=== PATIENT | male | born 1965 | race Caucasian/White ===

== ENCOUNTER 2023-07-02 08:09 | Emergency (ER) | payer MEDICAID, SELFPAY ==
[2023-07-02 08:11] VITALS: BP 157/92; PULSE 83; RESP 16; TEMP 35.8; O2SAT 99; BMI 30.4
--- NOTE | 2023-07-02 08:33 | EKG12_ITS ---
Test Reason : SEIZURE Blood Pressure : / mmHG Vent. Rate : 071 BPM Atrial Rate : 071 BPM P-R Int : 128 ms QRS Dur : 086 ms QT Int : 400 ms P-R-T Axes : 044 -08 037 degrees QTc Int : 434 ms Normal sinus rhythm Normal ECG Confirmed by Dennis Melvin ([id number]), commissioning editor KADEN ABDULLAHI ([id number]) on 07/06/2023 10:09:58 AM Referred By: Confirmed By:Dennis Melvin
--- NOTE | 2023-07-02 08:34 | EX.ED.DYSGE1 ---
HPI History of Present Illness Chief Complaint: Seizure Detail of Chief Complaint: Shortness of breath and concern for possible seizure Informant: patient Narrative Narrative: Patient presents to the emergency department from residential with some shortness of breath that started last evening. Patient also has been shaking and thinks maybe he was having seizure type activity. He does have history of seizures and takes Depakote but did not get his 4:00 medications yesterday. Patient still at times feels shaky in the upper extremities. He is awake when this is happening. He used his nebulizer treatments last night. Feels better this morning but still little shaky and some mild shortness of breath. He denies any chest pain. He does have history of Seese emphysema and COPD. History of PE and currently on Eliquis. [facility] Medical History (Updated 07/02/23 @ 10:[address] Laquita Varner, ) DVT (deep venous thrombosis) Anxiety Seizures Emphysema/COPD Schizophrenia Home Medications ?Medication ?Instructions ?Recorded ?Last Taken ?Type apixaban 5 mg tablet (Eliquis) 5 mg PO BID 07/02/23 Unknown History celecoxib 200 mg capsule (Celebrex) 200 mg PO BID 07/02/23 Unknown History cetirizine 10 mg tablet (Allergy 10 mg PO DAILY 07/02/23 Unknown History Relief (cetirizine)) divalproex 500 mg tablet,extended 1,500 mg PO DAILY 07/02/23 Unknown History release 24 hr folic acid 1 mg tablet 1 mg PO DAILY 07/02/23 Unknown History furosemide 40 mg tablet 40 mg PO DAILY 07/02/23 Unknown History lisinopril 5 mg tablet 5 mg PO DAILY 07/02/23 Unknown History lumateperone 42 mg capsule 42 mg PO DAILY 07/02/23 Unknown History (Caplyta) omeprazole 40 mg capsule,delayed 40 mg PO DAILY 07/02/23 Unknown History release potassium chloride 20 mEq 20 meq PO DAILY 07/02/23 Unknown History tablet,extended release pravastatin 40 mg tablet 40 mg PO QHS 07/02/23 Unknown History prednisone 20 mg tablet 20 mg PO DAILY 07/02/23 Unknown History prednisone 20 mg tablet 20 mg PO DAILY #3 tabs 07/02/23 Unknown Rx spironolactone 25 mg tablet 25 mg PO DAILY 07/02/23 Unknown History tizanidine 4 mg capsule 4 mg PO BID 07/02/23 Unknown History Allergy/AdvReac Type Severity Reaction Status Date / Time codeine AdvReac Severe Angioedema Verified 07/02/23 08:11 Social History Smoking Status: Current every day smoker tobacco type: cigarettes ROS ROS ED Review of Systems ROS Unobtainable: other Constitutional Constitutional ED: Reports lethargy; Denies chills, fever(s), sweats or weight loss Eyes Eyes: Denies blurry vision, change in vision or diplopia ENT ENT ED: Denies rhinorrhea or sore throat Cardiovascular Cardiovascular: Denies chest pain, orthopnea or racing heartbeat Respiratory/Chest Respiratory/Chest: Reports dyspnea and dyspnea on exertion; Denies cough, orthopnea or sputum Gastrointestinal Gastrointestinal: Denies abdominal pain, diarrhea, nausea or vomiting Genitourinary Genitourinary ED: Denies dysuria, hematuria or urinary frequency Musculoskeletal Musculoskeletal: Denies arthralgias, back pain, myalgias or neck pain Integumentary Denies abscess, Abrasions or rash Neurologic Neurologic: Reports other Details: Shaking of hands ; Denies headache(s) or weakness Psychiatric Psychiatric: Denies anxiety, depression or suicidal thoughts Endocrine Endocrinology: Denies polydipsia, polyphagia or polyuria Hematologic/Lymphatic Hematologic/Lymphatic: Denies easy bleeding, easy bruising or lymphadenopathy Allergic/Immunologic Allergic/Immunologic ED: Denies mouth swelling, tongue swelling or urticaria EXAM Physical Exam Const Vital Signs: 07/02/23 08:11 07/02/23 08:56 07/02/23 10:10 Temperature 96.4 F L Temperature Source Temporal Pulse Rate 83 72 Respiratory Rate 16 12 Blood Pressure 157/92 H 112/70 Blood Pressure Mean 113 84 Pulse Ox 99 95 Oxygen Delivery Method Room Air Room Air Room Air Positive well nourished and well developed General Appearance ED: well developed and NAD HEENT Reports TM's clear and moist mucous membranes normocephalic and atraumatic; Negative for trauma or tenderness Tympanic Membrane ED: Yes TM's clear Eyes PERRL and EOMs intact bilaterally General Eye ED: Negative for pale conjunctiva or scleral icterus Neck no lymphadenopathy, supple and no JVD General: Negative for tenderness Chest Wall inspection of chest normal and palpation of chest normal Chest: Negative for tenderness Resp normal respiratory effort and clear to auscultation bilaterally Resp Narrative: Few faint expiratory wheezes bilaterally. No significant tachypnea or accessory muscle use or retractions. Effort and Inspection: Negative for respiratory distress or pain with movement Auscultation: Negative for rhonchi, wheezes or diminished lung sounds Cardio regular rate, regular rhythm, S1 normal heart sound, S2 normal heart sound and no murmurs Peripheral Pulses: pulses 2+ throughout GI normal to inspection, nondistended, normoactive bowel sounds, soft to palpation, non-tender, non-distended and no masses Back/Spine no CVA tenderness and no thoracic nor lumbar tenderness Extremity normal to inspection General Extremety ED: Negative for edema General Extremity: Negative for edema Neuro oriented x3, CN's II-XII intact bilaterally, no sensory deficits noted and gait normal Neuro Narrative: Some shaking of his hands almost tremor-like bilaterally that dissipates at times and resolves. I do not feel he is having seizure-like activity. Sensorium / Orientation: awake, alert, oriented to person, oriented to place and oriented to time Motor Exam: strength 5/5 throughout and strength abnormal Psych mental status grossly normal Skin no rashes or lesions noted and no wounds MDM MDM MDM Narrative Medical decision making narrative: Patient presents from residential with caregiver with complaint of shaking in his hands and some shortness of breath that started last night. Patient does have history of anxiety. He thought maybe was seizure related although he has been taking his seizure medicines regularly other than he missed 1 dose yesterday. Clinically he looks well. IV line established. EKG obtained on arrival shows sinus rhythm with rate 71 bpm with no acute ST segment changes. CBC with differential count of 9.0 with hemoglobin 11.4 and platelet count 356. Chemistries unremarkable. Valproic acid was 57. Troponin normal at 5. Chest x-ray unremarkable. COVID flu and RSV testing was negative. He was given a DuoNeb aerosol. [place] improved. Clinically he looks well. He is not currently having any shaking activity. I do not think he is having seizure type activity. Suspect this is more likely anxiety related and he believes that it is also. I feel he can be safely discharged to home. I will write him for prednisone for 3 days although he is on 20 mg daily chronically I will give him extra 20 mg for the next 3 days. I do not feel he needs any antibiotics. Lab Data Attestation: I reviewed the patient's lab results. Labs: Laboratory Results - last 24 hr 07/02/23 08:50 WBC 9.0 RBC 3.34 L Hgb 11.4 L Hct 34.2 L MCV 102.4 H MCH 34.1 H MCHC 33.3 RDW Std Deviation 49.9 H RDW Coeff of [place] 13.2 Plt Count 356 MPV 8.8 Immature Gran % (Auto) 1.100 H Neut % (Auto) 53.4 Lymph % (Auto) 34.7 [place] % (Auto) 9.4 Eos % (Auto) 0.8 Baso % (Auto) 0.6 Absolute Neuts (auto) 4.8 Absolute Lymphs (auto) 3.11 Nucleated RBC % 0 Sodium 137 Potassium 3.3 L Chloride 102 Carbon Dioxide 29.0 Anion Gap 6 BUN 7 Creatinine 0.94 Estim Creat Clear Calc 98.46 Est GFR (MDRD) Af Amer 105 Est GFR (MDRD) Non-Af 87 BUN/Creatinine Ratio 7.4 L Glucose 101 Calcium 8.5 Troponin I High Sens 5 Valproic Acid 57 Radiography Diagnostic Testing: Clinical Impression(s) from Imaging Studies Chest X-Ray 07/02/23 09:18 IMPRESSION: No radiographic evidence of acute cardiopulmonary disease. Electronically Signed: Jamaal Vitale MD at 9:28 EDT , 1 view chest x-ray obtained interpreted by myself no evidence of infiltrate or pneumothorax or acute disease process. Radiology in agreement. EKG Initial EKG: Attestation: I personally reviewed and interpreted this EKG as follows: Comments: Sinus rhythm with rate of 71 bpm with no acute ST segment changes Discharge Plan Triage Chief Complaint: Seizure ED Provider: Lqauita Varner Dx/Rx/DC Orders Clinical Impression: COPD exacerbation, Anxiety Instructions: ED Anxiety Reaction, ED COPD Flare Prescriptions: New prednisone 20 mg tablet 20 mg PO DAILY Qty: 3 0RF No Action Caplyta 42 mg capsule 42 mg PO DAILY celecoxib [Celebrex] 200 mg capsule 200 mg PO BID cetirizine [Allergy Relief (cetirizine)] 10 mg tablet 10 mg PO DAILY divalproex 500 mg tablet extended release 24 hr 1,500 mg PO DAILY Eliquis 5 mg tablet 5 mg PO BID folic acid 1 mg tablet 1 mg PO DAILY furosemide 40 mg tablet 40 mg PO DAILY lisinopril 5 mg tablet 5 mg PO DAILY omeprazole 40 mg capsule,delayed release(DR/EC) 40 mg PO DAILY potassium chloride 20 mEq tablet extended release 20 meq PO DAILY pravastatin 40 mg tablet 40 mg PO QHS prednisone 20 mg tablet 20 mg PO DAILY Rx Instructions: days 11-21 of therapy spironolactone 25 mg tablet 25 mg PO DAILY tizanidine 4 mg capsule 4 mg PO BID Primary Care Provider: Ted Tran Referrals: [facility] Doctor,Out of [Non-Staff] - 3-5 Days Print Language: Turkish Disposition Disposition: Home, Self Care
--- NOTE | 2023-07-02 08:39 | NURSING ---
NO OLD EKGS
[2023-07-02 08:58] LABS: Absolute Lymphocyte Count 3.11 X10^3/uL (0.83-4.51); Absolute Neutrophil Count 4.8 X10^3/uL (2.0-7.7); Basophil# 0.05 X10^3/uL; Basophil% 0.6 % (0-1); Eosinophil# 0.07 X10^3/uL; Eosinophils% 0.8 % (0-5); Hematocrit 34.2 % (40-54); Hemoglobin 11.4 g/dL (13.0-16.5); Lymphocyte # 3.11 X10^3/ul (0.83-4.51); Lymphocyte % 34.7 % (19-41); Mean Corp Hgb Conc 33.3 g/dL (32-36); Mean Corpuscular Hgb 34.1 pg (27.0-32.0); Mean Corpuscular Volume 102.4 fL (80-94); Mean Platelet Vol. 8.8 fl (6.2-12.0); Monocyte# 0.84 X10^3/uL; Monocyte% 9.4 % (0-10); NRBC Flagged by Analyzer 0 % (0-5); Neutrophil # 4.78 X10^3/uL (2.7-7.7); Neutrophil % 53.4 % (47-70); Platelet Count 356 K/mm3 (150-450); RBC Distribution Width CV 13.2 % (11.6-14.6); RBC Distribution Width SD 49.9 fl (35.1-43.9); Red Blood Count 3.34 M/mm3 (4.6-6.2)
[2023-07-02] MEDS: 0.9% Normal Saline (1000mL) 1,000 ML 150 ML IV (09:01)
--- NOTE | 2023-07-02 09:18 | RAD_ITS ---
INDICATION: dyspnea EXAMINATION/TECHNIQUE: X-RAY - XR Chest 1 View COMPARISON: No relevant prior comparison study available FINDINGS: LINES/DEVICES: None. LUNGS: No consolidation, edema or effusion. No pneumothorax. MEDIASTINUM AND CARDIOVASCULAR STRUCTURES: Cardiac silhouette not enlarged. Central airways and mediastinal contour are unremarkable. BONES AND SOFT TISSUES: Unremarkable. RAD/Chest 1 View (Portable) IMPRESSION: No radiographic evidence of acute cardiopulmonary disease. Electronically Signed: Jamaal Vitale MD at 9:28 EDT ,
[2023-07-02 09:21] LABS: Anion Gap 6 (5-15); BUN 7 mg/dL (7-18); BUN/Creat Ratio 7.4 RATIO (10-20); Calcium,Total 8.5 mg/dL (8.5-10.1); Chloride 102 mmol/L (98-107); Creatinine, Serum 0.94 mg/dL (0.70-1.30); EST Glomerular Filtration Rate 87 mL/min (>60); Est Glom Filt Rate - Afr Amer 105 mL/min (>60); Estimated Creatinine Clearance 98.46 ml/min; Glucose 101 mg/dL (74-106); Potassium 3.3 mmol/L (3.5-5.1); Sodium Level 137 mmol/L (136-145); Troponin-I HS 5 pg/mL (3.0-78.0)
[2023-07-02 09:36] LABS: Valproic Acid (Depakene) Level 57 ug/mL (50-100)
[2023-07-02 10:10] VITALS: BP 112/70; PULSE 72; RESP 12; O2SAT 95
[2023-07-02] MEDS: LORazepam 2 MG/ML Syringe 1 MG IV (10:37)
[2023-07-02 10:41] VITALS: BP 131/82; PULSE 79; RESP 15; TEMP 36.5; O2SAT 95
== END 2023-07-02 10:41 | disposition home or self-care (01) ==
PROVIDERS: Emergency Provider Emergency Medicine; Visit Provider Emergency Medicine
DX: F41.9 Anxiety disorder, unspecified (principal); J44.1 Chronic obstructive pulmonary disease with (acute) exacerbation; R56.9 Unspecified convulsions; F17.210 Nicotine dependence, cigarettes, uncomplicated; R06.02 Shortness of breath; Z79.899 Other long term (current) drug therapy; Z86.711 Personal history of pulmonary embolism; Z79.01 Long term (current) use of anticoagulants; Z86.718 Personal history of other venous thrombosis and embolism
CPT/HCPCS: 71045; 80048; 80164; 84484; 85025; 87631; 93005; 96361; 96374; 99284; J7030; A4216

== ENCOUNTER 2023-07-06 19:39 | Emergency (ER) | payer MEDICAID, SELFPAY ==
[2023-07-06 19:40] VITALS: BP 133/79; PULSE 87; RESP 18; TEMP 36; O2SAT 98
--- NOTE | 2023-07-06 20:49 | EX.ED.DYSGE1 ---
HPI <SAHARA Morales - Last Filed: 07/06/23 20:54> History of Present Illness Chief Complaint: Lower Extremity Injury Narrative Narrative: Patient presenting today with concerns for pain, swelling, and erythema to his right lower extremity that started a few days ago. He does remember accidentally scratching his leg a few days before the symptoms started. He reports a history of DVT in the past and is on Eliquis. He is compliant with this. He denies any chest pain, shortness of breath, fevers, or chills. PFSH <SAHARA Morales - Last Filed: 07/06/23 20:54> [facility] Medical History DVT (deep venous thrombosis) Anxiety Seizures Emphysema/COPD Schizophrenia Home Medications ?Medication ?Instructions ?Recorded ?Last Taken ?Type apixaban 5 mg tablet (Eliquis) 5 mg PO BID 07/02/23 Unknown History celecoxib 200 mg capsule (Celebrex) 200 mg PO BID 07/02/23 Unknown History cetirizine 10 mg tablet (Allergy 10 mg PO DAILY 07/02/23 Unknown History Relief (cetirizine)) divalproex 500 mg tablet,extended 1,500 mg PO DAILY 07/02/23 Unknown History release 24 hr fluoxetine 40 mg capsule (Prozac) 40 mg PO DAILY 07/02/23 Unknown History folic acid 1 mg tablet 1 mg PO DAILY 07/02/23 Unknown History furosemide 40 mg tablet 40 mg PO DAILY 07/02/23 Unknown History hydroxyzine pamoate 50 mg capsule 50 mg PO BID 07/02/23 Unknown History lisinopril 5 mg tablet 5 mg PO DAILY 07/02/23 Unknown History lumateperone 42 mg capsule 42 mg PO DAILY 07/02/23 Unknown History (Caplyta) omeprazole 40 mg capsule,delayed 40 mg PO DAILY 07/02/23 Unknown History release potassium chloride 20 mEq 20 meq PO DAILY 07/02/23 Unknown History tablet,extended release pravastatin 40 mg tablet 40 mg PO QHS 07/02/23 Unknown History prednisone 20 mg tablet 20 mg PO DAILY 07/02/23 Unknown History prednisone 20 mg tablet 20 mg PO DAILY #3 tabs 07/02/23 Unknown Rx spironolactone 25 mg tablet 25 mg PO DAILY 07/02/23 Unknown History tizanidine 4 mg capsule 4 mg PO BID 07/02/23 Unknown History cephalexin 500 mg capsule 500 mg PO Q6 7 days #28 CAPSULES 07/06/23 Unknown Rx Allergy/AdvReac Type Severity Reaction Status Date / Time codeine AdvReac Severe Angioedema Verified 07/06/23 19:39 Social History Smoking Status: Current every day smoker tobacco type: cigarettes ROS <SAHARA Morales - Last Filed: 07/06/23 20:54> ROS ED Constitutional Constitutional ED: Denies chills or fever(s) Cardiovascular Cardiovascular: Denies chest pain Respiratory/Chest Respiratory/Chest: Denies dyspnea Musculoskeletal Musculoskeletal: Reports arthralgias Integumentary Reports Abrasions Neurologic Neurologic: Denies paresthesias or weakness EXAM <SAHARA Morales - Last Filed: 07/06/23 20:54> Physical Exam Const Vital Signs: 07/06/23 19:40 Temperature 96.8 F L Temperature Source Temporal Pulse Rate 87 Respiratory Rate 18 Blood Pressure 133/79 H Blood Pressure Mean 97 Pulse Ox 98 Oxygen Delivery Method Room Air Positive well nourished, well developed and no apparent distress General Appearance ED: well developed HEENT Reports normocephalic and head/scalp atraumatic Mouth ED: Yes moist mucous membranes normal Eyes PERRL and EOMs intact bilaterally Neck full ROM and supple Chest Wall inspection of chest normal Resp normal respiratory effort and clear to auscultation bilaterally Cardio regular rate and regular rhythm GI soft to palpation, non-tender, non-distended and no masses Back/Spine normal ROM and normal to inspection Extremity full ROM Extremity Narrative: Bilateral DP pulse 2+, good capillary refill, sensation intact. Small wound to the right mid craven with surrounding erythema. No purulent discharge. There are chronic venous stasis changes to the right lower extremity as well. Neuro oriented x3, CN's II-XII intact bilaterally, moves all extremities, no focal motor deficits and no sensory deficits noted Sensorium / Orientation: awake and alert Psych mental status grossly normal and thought process normal <Dr. Gareth Santos DO - Last Filed: 07/06/23 21:03> Physical Exam Const Vital Signs: 07/06/23 19:40 Temperature 96.8 F L Temperature Source Temporal Pulse Rate 87 Respiratory Rate 18 Blood Pressure 133/79 H Blood Pressure Mean 97 Pulse Ox 98 Oxygen Delivery Method Room Air [facility] <SAHARA Morales - Last Filed: 07/06/23 20:54> [facility] Narrative Medical decision making narrative: Patient presenting with cellulitis to his right lower extremity. He has a small wound to the right mid craven from scratching himself with surrounding erythema. No purulent discharge from the wound. He does have chronic venous stasis changes as well. Negative Homans' sign on the right. He is neurovascularly intact distally. He denies any history of diabetes or immunocompromising conditions. I do not feel that any labs are indicated at this time. Given he is compliant with his Eliquis I have low suspicion for DVT. He is well-appearing and in no acute distress. Vitals are unremarkable. He will be placed on Keflex with first dose here. I encouraged close follow-up with his PCP. He will be discharged home in stable condition. <Dr. Gareth Santos DO - Last Filed: 07/06/23 21:03> [facility] Treatment and Re-Evaluation :: I have personally performed a face to face assessment of the patient and have reviewed the EDDIE Note. I performed a substantive portion of the visit including all aspects of the following. My glover findings include: History is 57-year-old male on Eliquis presenting with right lower leg swelling and redness. Patient states he scratched himself recently and has developed some redness around the area as well as swelling extending distally. He notes he chronically has some leg discoloration of that leg. He notes he has had prior stenting of the artery. He has not missed any doses of his Eliquis. He notes no calf pain. Exam is there is a healing superficial abrasion and skin avulsion of the mid right craven with surrounding erythema measuring approximately 4 cm. There is mild swelling. Calf nontender. No palpable cords. There is a bounding dorsalis pedis pulse. Medical Decison Making this appears to be a cellulitis. Will start him on Keflex. Follow-up as needed return if worsening or concerns Discharge Plan Triage Chief Complaint: Lower Extremity Injury ED Midlevel Provider: Cindy Castillo ED Provider: Gareth Santos Dx/Rx/DC Orders Clinical Impression: Cellulitis Instructions: ED Cellulitis Prescriptions: New cephalexin 500 mg capsule 500 mg PO Q6 7 Days Qty: 28 0RF No Action Caplyta 42 mg capsule 42 mg PO DAILY celecoxib [Celebrex] 200 mg capsule 200 mg PO BID cetirizine [Allergy Relief (cetirizine)] 10 mg tablet 10 mg PO DAILY divalproex 500 mg tablet extended release 24 hr 1,500 mg PO DAILY Eliquis 5 mg tablet 5 mg PO BID folic acid 1 mg tablet 1 mg PO DAILY furosemide 40 mg tablet 40 mg PO DAILY lisinopril 5 mg tablet 5 mg PO DAILY omeprazole 40 mg capsule,delayed release(DR/EC) 40 mg PO DAILY potassium chloride 20 mEq tablet extended release 20 meq PO DAILY pravastatin 40 mg tablet 40 mg PO QHS prednisone 20 mg tablet 20 mg PO DAILY Rx Instructions: days 11-21 of therapy spironolactone 25 mg tablet 25 mg PO DAILY tizanidine 4 mg capsule 4 mg PO BID prednisone 20 mg tablet 20 mg PO DAILY Qty: 3 0RF fluoxetine [Prozac] 40 mg capsule 40 mg PO DAILY hydroxyzine pamoate 50 mg capsule 50 mg PO BID Primary Care Provider: Ted Tran Referrals: Ted Tran [Other] Activity Restrictions/Additional Instructions: Follow-up with your PCP in the next 5 to 7 days and return for any worsening of your symptoms. Print Language: Ukrainian Disposition Disposition: Home, Self Care
[2023-07-06] MEDS: Cephalexin 250 MG Capsule 500 MG PO (21:23)
[2023-07-06 21:24] VITALS: BP 161/91; PULSE 75; RESP 19; TEMP 36.3; O2SAT 98
== END 2023-07-06 21:26 | disposition home or self-care (01) ==
PROVIDERS: Emergency Provider Emergency Medicine; Visit Provider Emergency Medicine
DX: L03.115 Cellulitis of right lower limb (principal); J43.9 Emphysema, unspecified; F17.210 Nicotine dependence, cigarettes, uncomplicated; Z86.718 Personal history of other venous thrombosis and embolism; Z79.01 Long term (current) use of anticoagulants; Z79.899 Other long term (current) drug therapy
CPT/HCPCS: 99282

== ENCOUNTER 2023-07-11 17:08 | Emergency (ER) | payer MEDICAID, SELFPAY ==
[2023-07-11 17:10] VITALS: BP 108/67; PULSE 94; RESP 18; TEMP 36.4; O2SAT 98; BMI 29.3
--- NOTE | 2023-07-11 17:43 | ED.VIS.DYS ---
HPI History of Present Illness Chief Complaint: Shortness of Breath Informant: patient Onset/Context/Timing Onset: Today Context: gradual Timing: Continuous Quality: Positive for Dyspnea on exertion Worsened by: Exertion Relieved by: Nothing Associated Symptoms cough; Negative for rhinorrhea, post nasal drip, ear pain, fever, sore throat, chills, sweats, clear sputum, white sputum, yellow sputum or green sputum Chest Pain: Positive for None Narrative Narrative: Patient presents with shortness of breath that became worse today. Patient states he is down to his last DuoNeb aerosol. Patient states that he does not know when his mail delivery prescription will be received at his house. Patient states his breathing is worse with any exertion. Patient admits to a mild cough but denies any sputum production. Patient denies any fevers or chills. Patient denies any chest pain. Patient states he normally takes 3 DuoNeb aerosols per day. [facility] Medical History DVT (deep venous thrombosis) Anxiety Seizures Emphysema/COPD Schizophrenia Home Medications ?Medication ?Instructions ?Recorded ?Last Taken ?Type apixaban 5 mg tablet (Eliquis) 5 mg PO BID 07/02/23 Unknown History celecoxib 200 mg capsule (Celebrex) 200 mg PO BID 07/02/23 Unknown History cetirizine 10 mg tablet (Allergy 10 mg PO DAILY 07/02/23 Unknown History Relief (cetirizine)) divalproex 500 mg tablet,extended 1,500 mg PO DAILY 07/02/23 Unknown History release 24 hr fluoxetine 40 mg capsule (Prozac) 40 mg PO DAILY 07/02/23 Unknown History folic acid 1 mg tablet 1 mg PO DAILY 07/02/23 Unknown History furosemide 40 mg tablet 40 mg PO DAILY 07/02/23 Unknown History hydroxyzine pamoate 50 mg capsule 50 mg PO BID 07/02/23 Unknown History lisinopril 5 mg tablet 5 mg PO DAILY 07/02/23 Unknown History lumateperone 42 mg capsule 42 mg PO DAILY 07/02/23 Unknown History (Caplyta) omeprazole 40 mg capsule,delayed 40 mg PO DAILY 07/02/23 Unknown History release potassium chloride 20 mEq 20 meq PO DAILY 07/02/23 Unknown History tablet,extended release pravastatin 40 mg tablet 40 mg PO QHS 07/02/23 Unknown History prednisone 20 mg tablet 20 mg PO DAILY 07/02/23 Unknown History prednisone 20 mg tablet 20 mg PO DAILY #3 tabs 07/02/23 Unknown Rx spironolactone 25 mg tablet 25 mg PO DAILY 07/02/23 Unknown History tizanidine 4 mg capsule 4 mg PO BID 07/02/23 Unknown History cephalexin 500 mg capsule 500 mg PO Q6 7 days #28 CAPSULES 07/06/23 Unknown Rx ipratropium 0.5 mg-albuterol 3 mg 3 ml inhalation TID #90 mL 07/11/23 Unknown Rx (2.5 mg base)/3 mL nebulization soln Allergy/AdvReac Type Severity Reaction Status Date / Time codeine AdvReac Severe Angioedema Verified 07/11/23 17:09 Surgical History no surgical history no surgical history Social History Smoking Status: Current every day smoker tobacco type: cigarettes ROS ROS ED Constitutional Constitutional ED: Denies chills or fever(s) Eyes Eyes: Denies blurry vision or change in vision ENT ENT ED: Denies rhinorrhea or sore throat Cardiovascular Cardiovascular: Denies chest pain or palpitations Respiratory/Chest Respiratory/Chest: Reports cough and dyspnea Gastrointestinal Gastrointestinal: Denies nausea or vomiting Genitourinary Genitourinary ED: Denies dysuria or hematuria Musculoskeletal Musculoskeletal: Denies back pain or neck pain Integumentary Denies abscess or rash Neurologic Neurologic: Denies headache(s) or weakness Allergic/Immunologic Allergic/Immunologic ED: Denies mouth swelling or urticaria EXAM Physical Exam Const Vital Signs: 07/11/23 17:10 07/11/23 17:19 Temperature 97.5 F L Temperature Source Temporal Pulse Rate 94 Respiratory Rate 18 Respiratory Effort Short of Breath Respiratory Depth Normal Respiratory Pattern Normal Blood Pressure 108/67 Blood Pressure Mean 80 Pulse Ox 98 Oxygen Delivery Method Room Air Room Air Positive well nourished and well developed General Appearance ED: well developed and NAD HEENT Reports moist mucous membranes Neck supple and no JVD Resp normal respiratory effort Auscultation: wheezes expiratory wheezes and throughout Cardio regular rate and regular rhythm GI non-tender and non-distended Palpation: soft Neuro oriented x3, CN's II-XII intact bilaterally and no sensory deficits noted [place] Coma Scale: document GCS findings Spontaneous Obeys Commands Oriented 15 Sensorium / Orientation: alert Speech: speech normal Motor Exam: strength 5/5 throughout Psych mental status grossly normal MDM MDM MDM Narrative Medical decision making narrative: Patient was given a DuoNeb aerosol here. Patient was given a prescription for refills for his DuoNeb aerosols. Patient was instructed to follow-up with his primary care physician in 5 to 7 days for reevaluation. Patient understood and was agreeable with the plan. All questions were answered. Discharge Plan Triage Chief Complaint: Shortness of Breath ED Provider: Kirill Baker Dx/Rx/DC Orders Clinical Impression: Dyspnea on exertion, COPD exacerbation Instructions: ED COPD Flare, ED Dyspnea Prescriptions: New ipratropium-albuterol 0.5 mg-3 mg(2.5 mg base)/3 mL solution for nebulization 3 ml inhalation TID Qty: 90 0RF No Action Caplyta 42 mg capsule 42 mg PO DAILY celecoxib [Celebrex] 200 mg capsule 200 mg PO BID cetirizine [Allergy Relief (cetirizine)] 10 mg tablet 10 mg PO DAILY divalproex 500 mg tablet extended release 24 hr 1,500 mg PO DAILY Eliquis 5 mg tablet 5 mg PO BID folic acid 1 mg tablet 1 mg PO DAILY furosemide 40 mg tablet 40 mg PO DAILY lisinopril 5 mg tablet 5 mg PO DAILY omeprazole 40 mg capsule,delayed release(DR/EC) 40 mg PO DAILY potassium chloride 20 mEq tablet extended release 20 meq PO DAILY pravastatin 40 mg tablet 40 mg PO QHS prednisone 20 mg tablet 20 mg PO DAILY Rx Instructions: days 11-21 of therapy spironolactone 25 mg tablet 25 mg PO DAILY tizanidine 4 mg capsule 4 mg PO BID prednisone 20 mg tablet 20 mg PO DAILY Qty: 3 0RF fluoxetine [Prozac] 40 mg capsule 40 mg PO DAILY hydroxyzine pamoate 50 mg capsule 50 mg PO BID cephalexin 500 mg capsule 500 mg PO Q6 7 Days Qty: 28 0RF Primary Care Provider: Ted Tran MD Referrals: Ted Tran MD [Other] - 5-7 Days NOT,DEFINED [Non-Staff] - Print Language: Swedish Disposition Disposition: Home, Self Care
[2023-07-11] MEDS: Ipratropium/Albuterol Sulfate 3 ML AMPUL.NEB INHALATION (17:58)
[2023-07-11 17:59] VITALS: PULSE 91; RESP 16
== END 2023-07-11 18:13 | disposition home or self-care (01) ==
PROVIDERS: Emergency Provider Emergency Medicine; Visit Provider Emergency Medicine
DX: J44.1 Chronic obstructive pulmonary disease with (acute) exacerbation (principal); J43.9 Emphysema, unspecified; F17.210 Nicotine dependence, cigarettes, uncomplicated
CPT/HCPCS: 94640; 99282

== ENCOUNTER 2023-08-27 22:09 | Emergency (ER) | payer MEDICAID, SELFPAY ==
[2023-08-27 22:10] VITALS: BP 168/72; PULSE 89; RESP 18; TEMP 36.6; O2SAT 98; BMI 32.3
[2023-08-27 22:41] LABS: Absolute Lymphocyte Count 2.58 X10^3/uL (0.83-4.51); Absolute Neutrophil Count 5.2 X10^3/uL (2.0-7.7); Basophil# 0.01 X10^3/uL; Basophil% 0.1 % (0-1); Eosinophil# 0.02 X10^3/uL; Eosinophils% 0.2 % (0-5); Hematocrit 34.3 % (40-54); Hemoglobin 11.2 g/dL (13.0-16.5); Lymphocyte # 2.58 X10^3/ul (0.83-4.51); Lymphocyte % 29.8 % (19-41); Mean Corp Hgb Conc 32.7 g/dL (32-36); Mean Corpuscular Hgb 33.8 pg (27.0-32.0); Mean Corpuscular Volume 103.6 fL (80-94); Mean Platelet Vol. 9.3 fl (6.2-12.0); Monocyte# 0.77 X10^3/uL; Monocyte% 8.9 % (0-10); NRBC Flagged by Analyzer 0 % (0-5); Neutrophil # 5.21 X10^3/uL (2.7-7.7); Neutrophil % 60.1 % (47-70); Platelet Count 270 K/mm3 (150-450); RBC Distribution Width CV 12.8 % (11.6-14.6); RBC Distribution Width SD 48.5 fl (35.1-43.9); Red Blood Count 3.31 M/mm3 (4.6-6.2); White Blood Count 8.7 K/mm3 (4.4-11.0)
[2023-08-27 23:05] LABS: Amphetamine Urine VISTA NEGATIVE (<1000 ng/mL); Barbiturate Urine VISTA NEGATIVE (< 200 ng/mL); Benzodiazepine Urine VISTA NEGATIVE (< 200 ng/mL); Cocaine Urine VISTA NEGATIVE (< 300 ng/mL); Ecstacy Urine VISTA POSITIVE (< 500 ng/mL); Methadone Urine VISTA NEGATIVE (< 300 ng/mL); PCP Urine VISTA NEGATIVE (< 25 ng/mL); THC Urine VISTA POSITIVE (< 50 ng/mL); Vista UDS pH Range 5
--- NOTE | 2023-08-27 23:07 | EX.ED.VIS.PS ---
HPI HPI - Psych History of Present Illness Chief Complaint: Suicidal Narrative Narrative: 57-year-old male presenting with suicidal thoughts and a plan to kill himself with a kitchen knife by cutting his throat. He states he is depressed over the loss of his girlfriend 3 years ago. He states he always feels depressed. He is living at a sober living house and he has been seen by the counseling center. Today he states the feelings are very strong and the superintendent warehouse brought him in for assessment. [facility] Medical History DVT (deep venous thrombosis) Anxiety Seizures Emphysema/COPD Schizophrenia Home Medications ?Medication ?Instructions ?Recorded ?Last Taken ?Type apixaban 5 mg tablet (Eliquis) 5 mg PO BID 07/02/23 Unknown History celecoxib 200 mg capsule (Celebrex) 200 mg PO BID 07/02/23 Unknown History cetirizine 10 mg tablet (Allergy 10 mg PO DAILY 07/02/23 Unknown History Relief (cetirizine)) divalproex 500 mg tablet,extended 1,500 mg PO DAILY 07/02/23 Unknown History release 24 hr fluoxetine 40 mg capsule (Prozac) 40 mg PO DAILY 07/02/23 Unknown History folic acid 1 mg tablet 1 mg PO DAILY 07/02/23 Unknown History furosemide 40 mg tablet 40 mg PO DAILY 07/02/23 Unknown History hydroxyzine pamoate 50 mg capsule 50 mg PO BID 07/02/23 Unknown History lisinopril 5 mg tablet 5 mg PO DAILY 07/02/23 Unknown History lumateperone 42 mg capsule 42 mg PO DAILY 07/02/23 Unknown History (Caplyta) omeprazole 40 mg capsule,delayed 40 mg PO DAILY 07/02/23 Unknown History release potassium chloride 20 mEq 20 meq PO DAILY 07/02/23 Unknown History tablet,extended release pravastatin 40 mg tablet 40 mg PO QHS 07/02/23 Unknown History prednisone 20 mg tablet 20 mg PO DAILY 07/02/23 Unknown History prednisone 20 mg tablet 20 mg PO DAILY #3 tabs 07/02/23 Unknown Rx spironolactone 25 mg tablet 25 mg PO DAILY 07/02/23 Unknown History tizanidine 4 mg capsule 4 mg PO BID 07/02/23 Unknown History cephalexin 500 mg capsule 500 mg PO Q6 7 days #28 CAPSULES 07/06/23 Unknown Rx ipratropium 0.5 mg-albuterol 3 mg 3 ml inhalation TID #90 mL 07/11/23 Unknown Rx (2.5 mg base)/3 mL nebulization soln Allergy/AdvReac Type Severity Reaction Status Date / Time clopidogrel (From Plavix) Allergy Mild Hives Verified 08/27/23 22:10 codeine AdvReac Severe Angioedema Verified 08/27/23 22:10 Social History Smoking Status: Current every day smoker tobacco type: cigarettes ROS ROS ED Constitutional Constitutional ED: Denies chills, fever(s) or sweats Eyes Eyes: Denies blurry vision or change in vision ENT ENT ED: Denies ear pain or sore throat Cardiovascular Cardiovascular: Denies chest pain, palpitations or racing heartbeat Respiratory/Chest Respiratory/Chest: Denies cough, dyspnea or sputum Gastrointestinal Gastrointestinal: Denies abdominal pain, constipation, diarrhea, nausea or vomiting Genitourinary Genitourinary ED: Denies dysuria, hematuria or urinary frequency Musculoskeletal Musculoskeletal: Denies arthralgias, myalgias or neck pain Integumentary Denies abscess, Abrasions or rash Neurologic Neurologic: Denies headache(s), paresthesias or weakness Psychiatric Psychiatric: Reports depression and suicidal ideation; Denies anxiety or suicidal thoughts Endocrine Endocrinology: Denies polydipsia or polyuria EXAM Physical Exam Const Vital Signs: 08/27/23 22:10 Temperature 97.8 F Temperature Source Temporal Pulse Rate 89 Respiratory Rate 18 Blood Pressure 168/72 H Blood Pressure Mean 104 Pulse Ox 98 Oxygen Delivery Method Room Air Positive well nourished General Appearance ED: NAD; Negative for pallor HEENT Reports moist mucous membranes Eyes PERRL and EOMs intact bilaterally Resp normal respiratory effort Cardio Rate: regular rate and bradycardia Neuro oriented x3 and CN's II-XII intact bilaterally Motor Exam: strength 5/5 throughout Psych Appearance: grossly normal Attitude: calm Mood & Affect: depressed Thought Content: suicidality and No homicidality Attention / Concentration: attention grossly intact Memory / Cognition: memory grossly intact Insight: poor Judgement: poor Skin General Skin Exam: Negative for jaundice or pallor MDM MDM Lab Data Labs: Laboratory Results - last 24 hr 08/27/23 22:29 WBC 8.7 RBC 3.31 L Hgb 11.2 L Hct 34.3 L MCV 103.6 H MCH 33.8 H MCHC 32.7 RDW Std Deviation 48.5 H RDW Coeff of [place] 12.8 Plt Count 270 MPV 9.3 Immature Gran % (Auto) 0.900 Neut % (Auto) 60.1 Lymph % (Auto) 29.8 [place] % (Auto) 8.9 Eos % (Auto) 0.2 Baso % (Auto) 0.1 Absolute Neuts (auto) 5.2 Absolute Lymphs (auto) 2.58 Nucleated RBC % 0 Urine Opiates Screen NEGATIVE Urine Methadone Screen NEGATIVE Ur Barbiturates Screen NEGATIVE Ur Phencyclidine Scrn NEGATIVE Ur Amphetamines Screen NEGATIVE MDMA (Ecstasy) Screen POSITIVE H U Benzodiazepines Scrn NEGATIVE Urine Cocaine Screen NEGATIVE U Cannabinoids Screen POSITIVE H Ur Drug Screen Comment Discharge Plan Triage Chief Complaint: Suicidal ED Provider: Rudolph Sun Dx/Rx/DC Orders Prescriptions: No Action Caplyta 42 mg capsule 42 mg PO DAILY celecoxib [Celebrex] 200 mg capsule 200 mg PO BID cetirizine [Allergy Relief (cetirizine)] 10 mg tablet 10 mg PO DAILY divalproex 500 mg tablet extended release 24 hr 1,500 mg PO DAILY Eliquis 5 mg tablet 5 mg PO BID folic acid 1 mg tablet 1 mg PO DAILY furosemide 40 mg tablet 40 mg PO DAILY lisinopril 5 mg tablet 5 mg PO DAILY omeprazole 40 mg capsule,delayed release(DR/EC) 40 mg PO DAILY potassium chloride 20 mEq tablet extended release 20 meq PO DAILY pravastatin 40 mg tablet 40 mg PO QHS prednisone 20 mg tablet 20 mg PO DAILY Rx Instructions: days 11-21 of therapy spironolactone 25 mg tablet 25 mg PO DAILY tizanidine 4 mg capsule 4 mg PO BID prednisone 20 mg tablet 20 mg PO DAILY Qty: 3 0RF fluoxetine [Prozac] 40 mg capsule 40 mg PO DAILY hydroxyzine pamoate 50 mg capsule 50 mg PO BID ipratropium-albuterol 0.5 mg-3 mg(2.5 mg base)/3 mL solution for nebulization 3 ml inhalation TID Qty: 90 0RF cephalexin 500 mg capsule 500 mg PO Q6 7 Days Qty: 28 0RF Primary Care Provider: [facility] Doctor,Out of Referrals: [facility] Doctor,Out of [Primary Care Provider] - Print Language: Grenadian
[2023-08-27 23:09] VITALS: BP 123/70; PULSE 66; RESP 18; O2SAT 98
[2023-08-27 23:10] LABS: Anion Gap 7 (5-15); BUN 13 mg/dL (7-18); BUN/Creat Ratio 11.6 RATIO (10-20); Calcium,Total 8.1 mg/dL (8.5-10.1); Chloride 103 mmol/L (98-107); Creatinine, Serum 1.12 mg/dL (0.70-1.30); EST Glomerular Filtration Rate 71 mL/min (>60); Est Glom Filt Rate - Afr Amer 86 mL/min (>60); Glucose 119 mg/dL (74-106); Potassium 3.6 mmol/L (3.5-5.1); Sodium Level 137 mmol/L (136-145)
[2023-08-27 23:12] LABS: Alcohol, Blood (Medical)-Serum < 3.0 mg/dL
--- NOTE | 2023-08-27 23:59 | ED.RN ---
please call Angel Coleman with the [facility], when patient is discharged, he is able to come pick him up.
[2023-08-28 00:09] VITALS: BP 120/71; PULSE 72; RESP 18; O2SAT 99
[2023-08-28 01:00] VITALS: BP 154/80; PULSE 66; RESP 16; O2SAT 98
[2023-08-28 02:00] VITALS: BP 133/62; PULSE 75; RESP 18; O2SAT 98
[2023-08-28 06:45] VITALS: BP 133/66; PULSE 72; RESP 16; TEMP 37.1; O2SAT 95
== END 2023-08-28 07:12 ==
PROVIDERS: Emergency Provider Student in an Organized Health Care Education/Training Program; Visit Provider Student in an Organized Health Care Education/Training Program
DX: R45.851 Suicidal ideations (principal); J43.9 Emphysema, unspecified; F17.210 Nicotine dependence, cigarettes, uncomplicated; F32.A Depression, unspecified
CPT/HCPCS: 36415; 80048; 80307; 82077; 85025; 99285

== ENCOUNTER 2023-09-08 12:41 | Emergency (ER) | payer MEDICAID, SELFPAY ==
[2023-09-08 12:42] VITALS: BP 135/73; PULSE 86; RESP 18; TEMP 36.8; O2SAT 96; BMI 32.5
[2023-09-08 13:06] LABS: Bacteria 0 SEEN /hpf (None Seen); Mucous, Urine 0 SEEN /hpf (<or=2+); Red Blood Cells-Urine 0 SEEN /hpf (0-5); Squamous Epithelial Cells - UA 0 SEEN /hpf (0-5); White Blood Cells 0 SEEN /hpf (0-5)
[2023-09-08 13:09] LABS: Color, Urine Yellow (Yellow); Glucose, Dipstick Normal (Normal); Ketone-Dipstick Negative (Negative); Leukocyte Esterase-Dipstick Negative /ul (Negative); Nitrite-Dipstick Negative (Negative); Occult Blood-Urine Negative /ul (Negative); Protein-Dipstick Negative (Negative); Urine Bilirubin Dipstick Negative (Negative); Urine Clarity Clear (Clear); Urine Urobilinogen Normal (Normal)
[2023-09-08 13:53] LABS: Absolute Lymphocyte Count 0.86 X10^3/uL (0.83-4.51); Absolute Neutrophil Count 8.8 X10^3/uL (2.0-7.7); Basophil# 0.04 X10^3/uL; Basophil% 0.4 % (0-1); Eosinophil# 0.01 X10^3/uL; Eosinophils% 0.1 % (0-5); Hematocrit 35.6 % (40-54); Hemoglobin 11.8 g/dL (13.0-16.5); Lymphocyte # 0.86 X10^3/ul (0.83-4.51); Lymphocyte % 8.4 % (19-41); Mean Corp Hgb Conc 33.1 g/dL (32-36); Mean Corpuscular Hgb 33.3 pg (27.0-32.0); Mean Corpuscular Volume 100.6 fL (80-94); Monocyte# 0.46 X10^3/uL; Monocyte% 4.5 % (0-10); NRBC Flagged by Analyzer 0 % (0-5); Neutrophil # 8.81 X10^3/uL (2.7-7.7); Platelet Count 255 K/mm3 (150-450); RBC Distribution Width CV 12.2 % (11.6-14.6); RBC Distribution Width SD 44.6 fl (35.1-43.9); Red Blood Count 3.54 M/mm3 (4.6-6.2); White Blood Count 10.2 K/mm3 (4.4-11.0)
[2023-09-08 14:24] LABS: Anion Gap 6 (5-15); BUN 14 mg/dL (7-18); BUN/Creat Ratio 11.9 RATIO (10-20); Calcium,Total 8.6 mg/dL (8.5-10.1); Chloride 96 mmol/L (98-107); Creatinine, Serum 1.18 mg/dL (0.70-1.30); EST Glomerular Filtration Rate 67 mL/min (>60); Est Glom Filt Rate - Afr Amer 81 mL/min (>60); Estimated Creatinine Clearance 80.94 ml/min; Glucose 127 mg/dL (74-106); Potassium 4.4 mmol/L (3.5-5.1); Sodium Level 135 mmol/L (136-145)
[2023-09-08 14:47] VITALS: BP 129/76; PULSE 73; RESP 15; TEMP 36.7; O2SAT 97
[2023-09-08 15:20] VITALS: BP 130/78; PULSE 78; RESP 18; TEMP 36.6; O2SAT 98
--- NOTE | 2023-09-08 16:08 | EDS_ITS ---
HPI History of Present Illness Chief Complaint: Complaint Detail of Chief Complaint: Bilateral back pain. Patient thinks he has a urinary problem. Onset/Context/Timing Onset: Month(s) Context: Gradual Onset Timing: Intermittent Quality: Dull and Aching Location: Thoracic Current Severity: Mild Maximum Severity: Mild Worsened by: improves with Movement Relieved by: Remaining Still Associated Symptoms Associated Symptoms: Negative for Numbness, Tingling, Radiation to Right Leg, Radiation to Left Leg, Fever, Abdominal Pain, Dysuria, Unable to Ambulate, Unable to Transfer, Urinary Retention, Urinary Incontinence, Constipation or Fecal Incontinence Narrative Narrative: 5 patient denies any weakness or numbness. To his legs. No bowel or bladder incontinence or retention. 7-year-old male present with history of hypertension. No prior back surgery. Denies any fall injury or trauma. Says he is having bilateral flank pain and he thinks he may have a urologic issue. He is able to urinate. No trouble with the stream. Denies any hematuria. No fever. The pain is worse with movement has had it for months. It comes and goes. Prior similar symptoms: Yes Recent Illness/Hospitalization: No [facility] Medical History DVT (deep venous thrombosis) Anxiety Seizures Emphysema/COPD Schizophrenia Home Medications ?Medication ?Instructions ?Recorded ?Last Taken ?Type apixaban 5 mg tablet (Eliquis) 5 mg PO BID 07/02/23 Unknown History celecoxib 200 mg capsule (Celebrex) 200 mg PO BID 07/02/23 Unknown History cetirizine 10 mg tablet (Allergy 10 mg PO DAILY 07/02/23 Unknown History Relief (cetirizine)) divalproex 500 mg tablet,extended 1,500 mg PO DAILY 07/02/23 Unknown History release 24 hr fluoxetine 40 mg capsule (Prozac) 40 mg PO DAILY 07/02/23 Unknown History folic acid 1 mg tablet 1 mg PO DAILY 07/02/23 Unknown History furosemide 40 mg tablet 40 mg PO DAILY 07/02/23 Unknown History hydroxyzine pamoate 50 mg capsule 50 mg PO BID 07/02/23 Unknown History lisinopril 5 mg tablet 5 mg PO DAILY 07/02/23 Unknown History lumateperone 42 mg capsule 42 mg PO DAILY 07/02/23 Unknown History (Caplyta) omeprazole 40 mg capsule,delayed 40 mg PO DAILY 07/02/23 Unknown History release potassium chloride 20 mEq 20 meq PO DAILY 07/02/23 Unknown History tablet,extended release pravastatin 40 mg tablet 40 mg PO QHS 07/02/23 Unknown History prednisone 20 mg tablet 20 mg PO DAILY 07/02/23 Unknown History spironolactone 25 mg tablet 25 mg PO DAILY 07/02/23 Unknown History ipratropium 0.5 mg-albuterol 3 mg 3 ml inhalation TID #90 mL 07/11/23 Unknown Rx (2.5 mg base)/3 mL nebulization soln B-complex with vitamin C 1 tab PO DAILY 08/28/23 Unknown History albuterol sulfate 90 mcg/actuation 2 puff inhalation Q4H 08/28/23 Unknown History aerosol inhaler cholecalciferol (vitamin D3) 125 125 mcg PO DAILY 08/28/23 Unknown History mcg (5,000 unit) tablet fluticasone furoate 200 1 inh inhalation Q24H 08/28/23 Unknown History mcg-vilanterol 25 mcg/dose inhalation powder naltrexone 50 mg tablet 50 mg PO DAILY 08/28/23 Unknown History potassium chloride 20 mEq oral 20 meq PO DAILY 08/28/23 Unknown History packet tiotropium bromide 2.5 2 puff inhalation DAILY 08/28/23 Unknown History mcg/actuation mist for inhalation (Spiriva Respimat) tizanidine 4 mg tablet 4 mg PO BID 08/28/23 Unknown History trazodone 100 mg tablet 100 mg PO QHS 08/28/23 Unknown History valbenazine 80 mg capsule 80 mg PO QPM 08/28/23 Unknown History (Ingrezza) Allergy/AdvReac Type Severity Reaction Status Date / Time clopidogrel (From Plavix) Allergy Mild Hives Verified 09/08/23 12:42 codeine AdvReac Severe Angioedema Verified 09/08/23 12:42 Social History Smoking Status: Current every day smoker tobacco type: cigarettes ROS ROS ED ROS Narrative Back pain. No recent illness. Constitutional Constitutional ED: Denies chills Eyes Eyes: Denies blurry vision Cardiovascular Cardiovascular: Denies chest pain Respiratory/Chest Respiratory/Chest: Denies dyspnea or dyspnea on exertion Gastrointestinal Gastrointestinal: Denies abdominal pain Genitourinary Genitourinary ED: Denies dysuria or hematuria Musculoskeletal Musculoskeletal: Reports back pain; Denies arthralgias, myalgias or neck pain Integumentary Denies abscess or Abrasions Neurologic Neurologic: Denies headache(s) Psychiatric Psychiatric: Denies anxiety or depression Endocrine Endocrinology: Denies cold intolerance Hematologic/Lymphatic Hematologic/Lymphatic: Denies easy bleeding Allergic/Immunologic Allergic/Immunologic ED: Denies mouth swelling, tongue swelling or urticaria EXAM Physical Exam Narrative Exam Narrative: 57-year-old male no acute distress. Vital signs are stable afebrile. H EENT exam unremarkable. Neck nontender. Lungs clear to auscultation. Heart regular rhythm no murmur. Abdomen soft, nontender, nondistended normal bowel sounds no peritoneal signs. Patient moving all 4 extremities. 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 Dorsi plantarflexion intact. Negative straight leg raise. No cauda equina. Back he is complaining of some mild discomfort Thoracic but is not reproducible. There is no signs of trauma. Neurologically is awake and alert. No loss of motor strength or sensation. Const Vital Signs: 09/08/23 12:42 09/08/23 14:47 09/08/23 15:20 Temperature 98.3 F 98.1 F 97.8 F Temperature Source Temporal Oral Pulse Rate 86 73 78 Respiratory Rate 18 15 18 Blood Pressure 135/73 H 129/76 H 130/78 H Blood Pressure Mean 93 93 95 Pulse Ox 96 97 98 Oxygen Delivery Method Room Air Positive well nourished and well developed; Negative for obese, cachectic, contractures or unkempt General Appearance ED: well developed and NAD; Negative for unkempt, cachectic, contractures or pallor Nutritional Appearance: Negative for cachectic or obese HEENT Reports moist mucous membranes; Denies dry mucous membranes Negative for trauma or tenderness Mouth ED: No dry mucous membranes Mouth: No dry mucous membranes Eyes PERRL and EOMs intact bilaterally General Eye ED: Negative for pale conjunctiva, scleral icterus or other Neck no lymphadenopathy, supple and no JVD General: Negative for tenderness Thyroid: Negative for other Resp normal respiratory effort and clear to auscultation bilaterally Effort and Inspection: Negative for pain with movement Auscultation: Negative for rales, rhonchi, wheezes or diminished lung sounds Cardio regular rate, regular rhythm, S1 normal heart sound, S2 normal heart sound and no murmurs Palpation: Negative for palpable S3 Rate: Negative for bradycardia or tachycardic Rhythm: Negative for abnormal rhythm Bruits: Negative for other GI normal to inspection, nondistended, normoactive bowel sounds, soft to palpation, non-tender, non-distended and no masses Inspection: Negative for abdominal distention Palpation: Negative for tender or guarding Back/Spine normal to inspection and no thoracic nor lumbar tenderness Back/Spine Narrative: No reproducible back pain. General Back: Negative for CVA tenderness Cervical Spine: Negative for cervical spine tenderness Thoracic Spine / Upper Back: Negative for paraspinal muscle tenderness Lumbar Spine / Lower Back: Negative for ROM limited Extremity normal to inspection and no clubbing, cyanosis or edema General Extremety ED: Negative for edema or tenderness General Extremity: Negative for edema Neuro oriented x3 and no sensory deficits noted Sensorium / Orientation: alert; Negative for confused, lethargic or stuporous Motor Exam: strength 5/5 throughout; Negative for strength abnormal Psych mental status grossly normal Appearance: Negative for unkempt Attitude: No agitated Mood & Affect: Negative for depressed, sad or tearful Skin no rashes or lesions noted and no wounds General Skin Exam: Negative for jaundice or pallor Lesions: No lesion noted Rashes: No rashes noted Trauma: Negative for abrasion or puncture Wounds: Negative for wounds noted MDM MDM MDM Narrative Medical decision making narrative: 57-year-old gentleman with mid back pain. Is not reproducible. Clinically think this is musculoskeletal. Patient was concerned that he has urinary tract infection and no other urologic issue. Will do a UA screening labs to check his kidney function and a bladder scan. He does not need any imaging does not selling a kidney stone he has had no recent falls or trauma. Repeat exam patient doing well. I went over his test with him. I think this is musculoskeletal in etiology. He lives in a skilled nursing type setting. One of the employees is with him. He can use Motrin for pain. He will be discharged to home. History & Record Review Discussion w/independent historian: Patient Additional record(s) reviewed:: Prior inpatient record, Prior outpatient record and Prior ED visit Lab Data Attestation: I reviewed the patient's lab results. Lab results narrative: CBC shows white count of 10. H&H 11.8 and 35.6. Platelets 255. Electrolytes show sodium 135. 6. Normal BUN 14 creatinine 1.1. Glucose 127. UA normal. No signs of infection. No white or red cells. No nitrates or normal bacteria. Bladder scan showed no signs of urinary retention. He only had a total of about 92 cc after he urinated. Labs: Laboratory Results - last 24 hr 09/08/23 09/08/23 12:45 13:40 WBC 10.2 RBC 3.54 L Hgb 11.8 L Hct 35.6 L MCV 100.6 H MCH 33.3 H MCHC 33.1 RDW Std Deviation 44.6 H RDW Coeff of [place]ango 12.2 Plt Count 255 MPV 10.0 Immature Gran % (Auto) 0.600 Neut % (Auto) 86.0 H Lymph % (Auto) 8.4 L Piatt % (Auto) 4.5 Eos % (Auto) 0.1 Baso % (Auto) 0.4 Absolute Neuts (auto) 8.8 H Absolute Lymphs (auto) 0.86 Nucleated RBC % 0 Sodium 135 L Potassium 4.4 Chloride 96 L Carbon Dioxide 33.0 H Anion Gap 6 BUN 14 Creatinine 1.18 Estim Creat Clear Calc 80.94 Est GFR (MDRD) Af Amer 81 Est GFR (MDRD) Non-Af 67 BUN/Creatinine Ratio 11.9 Glucose 127 H Calcium 8.6 Urine Color Yellow Urine Clarity Clear Urine pH 7.0 Ur Specific [place] 1.010 Urine Protein Negative Urine Glucose (UA) Normal Urine Ketones Negative Urine Occult Blood Negative Urine Nitrite Negative Urine Bilirubin Negative Urine Urobilinogen Normal Ur Leukocyte Esterase Negative Urine RBC 0 SEEN Urine WBC 0 SEEN Ur Squamous Epith Cells 0 SEEN Urine Bacteria 0 SEEN Urine Mucus 0 SEEN Discharge Plan Triage Chief Complaint: Complaint Other Complaint: Flank Pain ED Provider: Mateo Turner Dx/Rx/DC Orders Clinical Impression: Back pain Instructions: ED Back Pain (Acute or Chronic) Prescriptions: No Action Caplyta 42 mg capsule 42 mg PO DAILY celecoxib [Celebrex] 200 mg capsule 200 mg PO BID cetirizine [Allergy Relief (cetirizine)] 10 mg tablet 10 mg PO DAILY divalproex 500 mg tablet extended release 24 hr 1,500 mg PO DAILY Eliquis 5 mg tablet 5 mg PO BID folic acid 1 mg tablet 1 mg PO DAILY furosemide 40 mg tablet 40 mg PO DAILY lisinopril 5 mg tablet 5 mg PO DAILY omeprazole 40 mg capsule,delayed release(DR/EC) 40 mg PO DAILY potassium chloride 20 mEq tablet extended release 20 meq PO DAILY pravastatin 40 mg tablet 40 mg PO QHS prednisone 20 mg tablet 20 mg PO DAILY Rx Instructions: days 11-21 of therapy spironolactone 25 mg tablet 25 mg PO DAILY fluoxetine [Prozac] 40 mg capsule 40 mg PO DAILY hydroxyzine pamoate 50 mg capsule 50 mg PO BID ipratropium-albuterol 0.5 mg-3 mg(2.5 mg base)/3 mL solution for nebulization 3 ml inhalation TID Qty: 90 0RF albuterol sulfate 90 mcg/actuation HFA aerosol inhaler 2 puff inhalation Q4H B-complex with vitamin C Tablet 1 tab PO DAILY cholecalciferol (vitamin D3) 125 mcg (5,000 unit) tablet 125 mcg PO DAILY fluticasone furoate-vilanterol 200-25 mcg/dose blister with device 1 inh inhalation Q24H tizanidine 4 mg tablet 4 mg PO BID naltrexone 50 mg tablet 50 mg PO DAILY potassium chloride 20 mEq packet 20 meq PO DAILY trazodone 100 mg tablet 100 mg PO QHS Spiriva Respimat 2.5 mcg/actuation mist 2 puff inhalation DAILY Ingrezza 80 mg capsule 80 mg PO QPM Primary Care Provider: Ted Tran Referrals: Ted Tran MD [Primary Care Provider] - As Needed Activity Restrictions/Additional Instructions: Motrin for pain. No signs of urinary tract infection. No signs of trouble urinating. Is a be treated as musculoskeletal back pain. You can use Motrin for the pain. Follow- up with your doctor as needed. Print Language: Setswana Disposition Disposition: Home, Self Care Discharge Date/Time: 09/08/23 15:24
== END 2023-09-08 15:24 | disposition home or self-care (01) ==
PROVIDERS: Emergency Provider Emergency Medicine; PCP Family Medicine; Visit Provider Emergency Medicine
DX: M54.9 Dorsalgia, unspecified (principal); J43.9 Emphysema, unspecified; I10 Essential (primary) hypertension; F17.210 Nicotine dependence, cigarettes, uncomplicated; R10.9 Unspecified abdominal pain
CPT/HCPCS: 80048; 81001; 85025; 99282

== ENCOUNTER 2023-09-15 13:37 | Emergency (ER) | payer MEDICAID, SELFPAY ==
[2023-09-15 13:38] VITALS: BP 135/79; PULSE 84; RESP 16; TEMP 36; O2SAT 98; BMI 32.5
--- NOTE | 2023-09-15 14:08 | EDS_ITS ---
HPI History of Present Illness HPI Narrative: Patient presents with bilateral knee pain that has been getting worse over the past several days. Patient states that the has been falling due to his left knee giving out. Patient describes his pain as sharp. Patient states the pain is worse with going up and down steps and with weightbearing. Patient states he has been using IcyHot which has been helping. Patient denies any paresthesias. Patient denies any trauma or injury. Patient denies any clicking or popping sensation. Chief Complaint: Lower Extremity Injury Informant: patient Onset/Context/Timing Onset: Days Context: Gradual Onset Timing: Continuous Quality of Pain: Sharp Location: Bilateral knees, worse on the left Worsened by: Weightbearing and going up and down steps Relieved by: IcyHot Associated Symptoms Associated Symptoms: Positive for Weakness; Negative for Parasthesia or Loss of Funtion [facility] Medical History DVT (deep venous thrombosis) Anxiety Seizures Emphysema/COPD Schizophrenia Home Medications ?Medication ?Instructions ?Recorded ?Last Taken ?Type apixaban 5 mg tablet (Eliquis) 5 mg PO BID 07/02/23 Unknown History celecoxib 200 mg capsule (Celebrex) 200 mg PO BID 07/02/23 Unknown History cetirizine 10 mg tablet (Allergy 10 mg PO DAILY 07/02/23 Unknown History Relief (cetirizine)) divalproex 500 mg tablet,extended 1,500 mg PO DAILY 07/02/23 Unknown History release 24 hr fluoxetine 40 mg capsule (Prozac) 40 mg PO DAILY 07/02/23 Unknown History folic acid 1 mg tablet 1 mg PO DAILY 07/02/23 Unknown History furosemide 40 mg tablet 40 mg PO DAILY 07/02/23 Unknown History hydroxyzine pamoate 50 mg capsule 50 mg PO BID 07/02/23 Unknown History lisinopril 5 mg tablet 5 mg PO DAILY 07/02/23 Unknown History lumateperone 42 mg capsule 42 mg PO DAILY 07/02/23 Unknown History (Caplyta) omeprazole 40 mg capsule,delayed 40 mg PO DAILY 07/02/23 Unknown History release potassium chloride 20 mEq 20 meq PO DAILY 07/02/23 Unknown History tablet,extended release pravastatin 40 mg tablet 40 mg PO QHS 07/02/23 Unknown History prednisone 20 mg tablet 20 mg PO DAILY 07/02/23 Unknown History spironolactone 25 mg tablet 25 mg PO DAILY 07/02/23 Unknown History ipratropium 0.5 mg-albuterol 3 mg 3 ml inhalation TID #90 mL 07/11/23 Unknown Rx (2.5 mg base)/3 mL nebulization soln B-complex with vitamin C 1 tab PO DAILY 08/28/23 Unknown History albuterol sulfate 90 mcg/actuation 2 puff inhalation Q4H 08/28/23 Unknown History aerosol inhaler cholecalciferol (vitamin D3) 125 125 mcg PO DAILY 08/28/23 Unknown History mcg (5,000 unit) tablet fluticasone furoate 200 1 inh inhalation Q24H 08/28/23 Unknown History mcg-vilanterol 25 mcg/dose inhalation powder naltrexone 50 mg tablet 50 mg PO DAILY 08/28/23 Unknown History potassium chloride 20 mEq oral 20 meq PO DAILY 08/28/23 Unknown History packet tiotropium bromide 2.5 2 puff inhalation DAILY 08/28/23 Unknown History mcg/actuation mist for inhalation (Spiriva Respimat) tizanidine 4 mg tablet 4 mg PO BID 08/28/23 Unknown History trazodone 100 mg tablet 100 mg PO QHS 08/28/23 Unknown History valbenazine 80 mg capsule 80 mg PO QPM 08/28/23 Unknown History (Ingrezza) Allergy/AdvReac Type Severity Reaction Status Date / Time clopidogrel (From Plavix) Allergy Mild Hives Verified 09/08/23 12:42 codeine AdvReac Severe Angioedema Verified 09/08/23 12:42 Surgical History no surgical history no surgical history Social History Smoking Status: Current every day smoker tobacco type: cigarettes ROS ROS ED Constitutional Constitutional ED: Denies chills or fever(s) Eyes Eyes: Denies blurry vision or change in vision ENT ENT ED: Denies rhinorrhea or sore throat Cardiovascular Cardiovascular: Denies chest pain or palpitations Respiratory/Chest Respiratory/Chest: Reports dyspnea; Denies cough Gastrointestinal Gastrointestinal: Denies nausea or vomiting Genitourinary Genitourinary ED: Denies dysuria or hematuria Musculoskeletal Musculoskeletal: Reports back pain; Denies neck pain Integumentary Denies abscess or rash Neurologic Neurologic: Denies headache(s) or weakness Allergic/Immunologic Allergic/Immunologic ED: Denies mouth swelling or urticaria EXAM Physical Exam Const Vital Signs: 09/15/23 13:38 Temperature 96.8 F L Temperature Source Temporal Pulse Rate 84 Respiratory Rate 16 Blood Pressure 135/79 H Blood Pressure Mean 97 Pulse Ox 98 Oxygen Delivery Method Room Air Positive well nourished and well developed General Appearance ED: well developed and NAD HEENT Reports moist mucous membranes Neck full ROM and supple Extremity Extremity Narrative: There is tenderness to the bilateral knees. There is no joint effusion noted. Range of motion was slightly limited in all motions of the knees bilaterally secondary to pain. There is no laxity appreciated. Varus and valgus stress test were negative. Amy's test were negative. Pedal pulses are equal bilaterally. Sensation was intact to light touch in all digits. Strength is 5/5 bilateral in the lower extremities. Extensor mechanism is intact. Neuro oriented x3, CN's II-XII intact bilaterally, moves all extremities and no sensory deficits noted Sensorium / Orientation: alert Motor Exam: strength 5/5 throughout Psych mental status grossly normal MDM MDM MDM Narrative Medical decision making narrative: Differential diagnosis includes degenerative arthritis, chondromalacia, meniscus tear, and muscle strain. X-rays of the bilateral knees will be obtained to assess for degenerative arthritis. Radiography Diagnostic Testing: Clinical Impression(s) from Imaging Studies Knee X-Ray 09/15/23 14:55 IMPRESSION: Normal x-ray examination of the knee. Electronically Signed: Florentin Pandey MD at 15:14 EDT , Knee X-Ray 09/15/23 14:55 IMPRESSION: Normal x-ray examination of the knee. Electronically Signed: Florentin Pandey MD at 15:15 EDT , X-rays of the left knee were obtained. There are 4 views. On my independent interpretation, there is no acute fracture. There are no degenerative changes noted. There is no joint effusion noted. Radiologist also interpreted the x- rays and agrees. X-rays of the right knee were obtained. There are 4 views. On my independent interpretation, there is no acute fracture. There are no degenerative changes noted. There is no joint effusion noted. Radiologist also interpreted the x- rays and agrees. Treatment and Re-Evaluation Narrative: Patient was given Tylenol for pain. Discharge Plan Triage Chief Complaint: Lower Extremity Injury ED Provider: Kirill Baker Dx/Rx/DC Orders Clinical Impression: Left knee pain, Right knee pain Instructions: ED Knee Pain of Uncertain Cause Prescriptions: No Action Caplyta 42 mg capsule 42 mg PO DAILY celecoxib [Celebrex] 200 mg capsule 200 mg PO BID cetirizine [Allergy Relief (cetirizine)] 10 mg tablet 10 mg PO DAILY divalproex 500 mg tablet extended release 24 hr 1,500 mg PO DAILY Eliquis 5 mg tablet 5 mg PO BID folic acid 1 mg tablet 1 mg PO DAILY furosemide 40 mg tablet 40 mg PO DAILY lisinopril 5 mg tablet 5 mg PO DAILY omeprazole 40 mg capsule,delayed release(DR/EC) 40 mg PO DAILY potassium chloride 20 mEq tablet extended release 20 meq PO DAILY pravastatin 40 mg tablet 40 mg PO QHS prednisone 20 mg tablet 20 mg PO DAILY Rx Instructions: days 11-21 of therapy spironolactone 25 mg tablet 25 mg PO DAILY fluoxetine [Prozac] 40 mg capsule 40 mg PO DAILY hydroxyzine pamoate 50 mg capsule 50 mg PO BID ipratropium-albuterol 0.5 mg-3 mg(2.5 mg base)/3 mL solution for nebulization 3 ml inhalation TID Qty: 90 0RF albuterol sulfate 90 mcg/actuation HFA aerosol inhaler 2 puff inhalation Q4H B-complex with vitamin C Tablet 1 tab PO DAILY cholecalciferol (vitamin D3) 125 mcg (5,000 unit) tablet 125 mcg PO DAILY fluticasone furoate-vilanterol 200-25 mcg/dose blister with device 1 inh inhalation Q24H tizanidine 4 mg tablet 4 mg PO BID naltrexone 50 mg tablet 50 mg PO DAILY potassium chloride 20 mEq packet 20 meq PO DAILY trazodone 100 mg tablet 100 mg PO QHS Spiriva Respimat 2.5 mcg/actuation mist 2 puff inhalation DAILY Ingrezza 80 mg capsule 80 mg PO QPM Primary Care Provider: Ted Tran Referrals: Ted Tran MD [Primary Care Provider] - 5-7 Days Print Language: Liberian Disposition Disposition: Home, Self Care
[2023-09-15] MEDS: Acetaminophen 500 MG Tablet 1000 MG PO (14:49)
--- NOTE | 2023-09-15 14:55 | RAD_ITS ---
STUDY: X-RAY - RIGHT KNEE REASON FOR EXAM: Male, 57 years old. INJURY/PAIN TECHNIQUE: 4 view(s) of the knee. COMPARISON: None. FINDINGS: Normal visualized distal femur. Normal visualized proximal tibia and fibula. Normal proximal tibiofibular articulation. Normal medial femorotibial compartment. Normal lateral femorotibial compartment. Normal patellofemoral articulation. The soft tissue structures are unremarkable. RAD/Knee 4 or More Views IMPRESSION: Normal x-ray examination of the knee. Electronically Signed: Florentin Pandey MD at 15:15 EDT ,
--- NOTE | 2023-09-15 14:55 | RAD_ITS ---
STUDY: X-RAY - LEFT KNEE REASON FOR EXAM: Male, 57 years old. Injury/Pain TECHNIQUE: 4 view(s) of the knee. COMPARISON: None. FINDINGS: Normal visualized distal femur. Normal visualized proximal tibia and fibula. Normal proximal tibiofibular articulation. Normal medial femorotibial compartment. Normal lateral femorotibial compartment. Normal patellofemoral articulation. The soft tissue structures are unremarkable. RAD/Knee 4 or More Views IMPRESSION: Normal x-ray examination of the knee. Electronically Signed: Florentin Pandey MD at 15:14 EDT ,
== END 2023-09-15 15:37 | disposition home or self-care (01) ==
PROVIDERS: Emergency Provider Emergency Medicine; PCP Family Medicine; Visit Provider Emergency Medicine
DX: M25.561 Pain in right knee (principal); J43.9 Emphysema, unspecified; F17.210 Nicotine dependence, cigarettes, uncomplicated; M25.562 Pain in left knee; R06.00 Dyspnea, unspecified; M54.9 Dorsalgia, unspecified
CPT/HCPCS: 73564; 99282